=== PATIENT | male | born 1960 | race Caucasian/White ===

== ENCOUNTER 2018-08-21 19:10 | Inpatient (IN) | payer OTHER, SELFPAY ==
[~2018-08-21] VITALS: Ht 175.3 cm; Wt 85.5 kg
[2018-08-21] MEDS ORDERED: CEFTRIAXONE PMX 1GM/50ML 50 ML ONE (19:59)
[2018-08-21] MEDS ORDERED: CEFTRIAXONE PMX 1GM/50ML 50 ML IVPB ONE (20:00)
[2018-08-21] MEDS ORDERED: VANCOMYCIN 1,600 MG in SODIUM CHLORIDE 0.9% 250 ML IV ONE (20:00)
[2018-08-21] MEDS ORDERED: VANCOMYCIN PER PHARMACY IV ONE (20:00)
[2018-08-21] MEDS ORDERED: SODIUM CHLORIDE FLUSH 10ML SYR IVF ONE (20:00)
[2018-08-21] MEDS ORDERED: MULT-6 PO (20:10)
[2018-08-21] MEDS ORDERED: METO-95 PO (20:10)
[2018-08-21] MEDS ORDERED: DIGO125T PO (20:10)
[2018-08-21] MEDS ORDERED: RIVA20TA PO (20:10)
--- NOTE | 2018-08-21 20:22 | NUR ---
ANTIBIOTICS STARTED AFTER BLOOD CULTURES X 2 WERE DRAWN.
[2018-08-21 20:27] LABS: HCT (SEDRATE) 26.4 % (39.2-51.8)
[2018-08-21 20:34] LABS: ALANINE AMINOTRANSFERASE 34 U/L (12-78); ALBUMIN 3.3 g/dL (3.4-5.0); ANION GAP 10 mmol/L (5-15); CALCIUM 8.3 mg/dL (8.5-10.1); CHLORIDE 107 mmol/L (98-107); CREATININE 0.99 mg/dL (0.7-1.3)
[2018-08-21] MEDS ORDERED: OMEP-110 PO (20:34)
[2018-08-21] MEDS ORDERED: HYDR25TA11 PO (20:34)
[2018-08-21 20:38] LABS: MEAN CORPUSCULAR HEMOGLOBIN 20.2 pg (27.5-34.5); MEAN CORPUSCULAR HGB CONC 30.9 g/dL (33.2-36.2); MEAN CORPUSCULAR VOLUME 65.6 fL (81-97); MEAN PLATELET VOLUME 7.1 fL (7.4-10.4); PLATELET COUNT 268 x10^3/uL (130-400); RED CELL DISTRIBUTION WIDTH 22.8 % (9.4-14.8)
[2018-08-21 20:40] LABS: ALKALINE PHOSPHATASE 91 U/L (45-117); BILIRUBIN,TOTAL 0.5 mg/dL (0.2-1.0); TOTAL PROTEIN 7.1 g/dL (6.4-8.2)
[2018-08-21 20:52] LABS: ANISOCYTOSIS 2+; BASOPHILS # (AUTO) 0.02 x10^3/uL (0-0.1); BASOPHILS % (AUTO) 0 % (0-1); EOSINOPHILS # (AUTO) 0.21 x10^3/uL (0-0.4); EOSINOPHILS % (AUTO) 2 % (1-7); LYMPHOCYTES # (AUTO) 1.49 x10^3/uL (1-3.4); LYMPHOCYTES % (AUTO) 14 % (22-44); MD MORPH REVIEW ONLY; MICROCYTOSIS 2+; MONOCYTES # (AUTO) 1.24 x10^3/uL (0.2-0.8); MONOCYTES % (AUTO) 12 % (2-9); NEUTROPHILS # (AUTO) 7.46 x10^3/uL (1.8-6.8); NEUTROPHILS % (AUTO) 72 % (42-75)
[2018-08-21 20:53] LABS: HYPOCHROMIA 2+; OVALOCYTES 1+; POLYCHROMASIA 1+
[2018-08-21 20:55] LABS: <PLATELET ESTIMATE> ADEQUATE; LARGE PLATELETS 1+; SMALL PLATELETS 1+
[2018-08-21] MEDS ORDERED: NAPR220C2 PO (20:59)
[2018-08-21] MEDS ORDERED: SODIUM CHLORIDE FLUSH 10ML SYR IVF PRN (21:00)
[2018-08-21] MEDS ORDERED: VANCOMYCIN 1,600 MG in SODIUM CHLORIDE 0.9% 250 ML IV SCH (21:00)
--- NOTE | 2018-08-21 21:16 | NUR ---
FABIAN AT BEDSIDE FRO ADMIT. WOUND DRESSED WITH DRY DRESSING OF GAUZE AND KERLIX PER PAC.
[2018-08-21] MEDS ORDERED: DOCUSATE 100 MG CAPSULE PO PRN (21:30)
[2018-08-21] MEDS ORDERED: hydrALAzine 20 MG/ML, 1ML IVPush PRN (21:30)
[2018-08-21] MEDS ORDERED: LIDODERM 5% PATCH TD PRN (21:30)
[2018-08-21] MEDS ORDERED: VANCOMYCIN PER PHARMACY MC PRN (21:30)
[2018-08-21] MEDS ORDERED: ONDANSETRON ODT 4 MG PO PRN (21:30)
[2018-08-21 22:02] VITALS: BP 132/85
[2018-08-21] MEDS ORDERED: PHARMACOKINETIC CONSULTATION MC ONE (22:30)
[2018-08-21] MEDS ORDERED: PHARMACOKINETIC MONITORING MC PRN (22:30)
[2018-08-21] MEDS: OMEPRAZOLE 20 MG CAPSULE.DR PO SCH (22:55)
[2018-08-21] MEDS: GABAPENTIN 300 MG CAPSULE PO PRN (22:55)
[2018-08-22 01:33] VITALS: BP 128/84
[2018-08-22] MEDS: ACETAMINOPHEN 325 MG TABLET PO PRN ×3 (02:03→21:04)
[2018-08-22 02:15] VITALS: BP 115/71
[2018-08-22] MEDS: MORPHINE SULFATE 4 MG/ML, 1ML IVPush PRN ×6 (02:50→21:36)
[2018-08-22 03:08] LABS: TROPONIN I < 0.015 ng/mL (0.000-0.045)
[2018-08-22 05:09] LABS: MEAN CORPUSCULAR HEMOGLOBIN 20.3 pg (27.5-34.5); MEAN CORPUSCULAR HGB CONC 30.9 g/dL (33.2-36.2); MEAN CORPUSCULAR VOLUME 65.5 fL (81-97); MEAN PLATELET VOLUME 7.1 fL (7.4-10.4); PLATELET COUNT 239 x10^3/uL (130-400); RED BLOOD COUNT 4.01 x10^6/uL (4.38-5.82); RED CELL DISTRIBUTION WIDTH 23.3 % (9.4-14.8)
[2018-08-22 05:21] LABS: CREATININE 0.85 mg/dL (0.7-1.3)
[2018-08-22 05:22] LABS: TROPONIN I < 0.015 ng/mL (0.000-0.045)
[2018-08-22 06:09] LABS: BASOPHILS # (AUTO) 0.08 x10^3/uL (0-0.1); BASOPHILS % (AUTO) 1 % (0-1); EOSINOPHILS # (AUTO) 0.22 x10^3/uL (0-0.4); EOSINOPHILS % (AUTO) 2 % (1-7); LYMPHOCYTES # (AUTO) 1.19 x10^3/uL (1-3.4); LYMPHOCYTES % (AUTO) 11 % (22-44); MD SCAN; MONOCYTES # (AUTO) 1.26 x10^3/uL (0.2-0.8); MONOCYTES % (AUTO) 12 % (2-9); NEUTROPHILS # (AUTO) 7.82 x10^3/uL (1.8-6.8); NEUTROPHILS % (AUTO) 74 % (42-75)
[2018-08-22 08:04] VITALS: BP 131/83
[2018-08-22] MEDS: CEFTRIAXONE PMX 1GM/50ML 50 ML IV SCH ×2 (08:16→21:25)
[2018-08-22] MEDS: hydrOXyzine 10 MG/5 ML ORAL SOL PO SCH (09:00)
[2018-08-22] MEDS: OMEPRAZOLE 20 MG CAPSULE.DR PO SCH ×2 (10:13→21:04)
[2018-08-22] MEDS: MULTIVITAMIN 1 TABLET PO SCH (10:14)
[2018-08-22] MEDS: DIGOXIN 0.125 MG TABLET PO SCH (10:14)
[2018-08-22] MEDS: METOPROLOL SUCCINATE 100 MG TAB.ER.24H PO SCH (10:14)
[2018-08-22] MEDS: RIVAROXABAN 20 MG TABLET PO SCH (10:14)
[2018-08-22] MEDS: VANCOMYCIN 1,600 MG in SODIUM CHLORIDE 0.9% 250 ML IV SCH ×2 (10:49→13:00)
[2018-08-22] MEDS ORDERED: HYDROmorphone 2 MG/ML, 1ML IV ONE (12:00)
[2018-08-22] MEDS ORDERED: HYDROmorphone 2 MG/ML, 1ML ONE (12:01)
[2018-08-22] MEDS ORDERED: GADOBUTROL 7.5 MMOL/7.5 ML PFS ONE (12:44)
[2018-08-22 13:41] VITALS: BP 123/79
[2018-08-22] MEDS: GABAPENTIN 300 MG CAPSULE PO PRN (14:05)
[2018-08-22 20:00] VITALS: BP 122/79
[2018-08-23] MEDS: VANCOMYCIN 1,600 MG in SODIUM CHLORIDE 0.9% 250 ML IV SCH ×2 (01:20→13:05)
[2018-08-23] MEDS: MORPHINE SULFATE 4 MG/ML, 1ML IVPush PRN ×5 (01:20→22:08)
[2018-08-23 02:00] VITALS: BP 129/87
[2018-08-23 05:54] LABS: INTERNATIONAL NORMALIZED RATIO 1.41 (0.93-1.1); PROTHROMBIN TIME 14.7 Seconds (9.6-11.5)
[2018-08-23 05:59] LABS: ANION GAP 6 mmol/L (5-15); CALCIUM 7.9 mg/dL (8.5-10.1); CHLORIDE 107 mmol/L (98-107); CREATININE 0.77 mg/dL (0.7-1.3)
[2018-08-23 06:15] LABS: MEAN CORPUSCULAR HEMOGLOBIN 19.6 pg (27.5-34.5); MEAN PLATELET VOLUME 7.6 fL (7.4-10.4); PLATELET COUNT 269 x10^3/uL (130-400); RED BLOOD COUNT 3.91 x10^6/uL (4.38-5.82); RED CELL DISTRIBUTION WIDTH 23.4 % (9.4-14.8)
[2018-08-23 06:19] LABS: MEAN CORPUSCULAR HGB CONC 29.6 g/dL (33.2-36.2)
[2018-08-23 06:50] LABS: BASOPHILS % (AUTO) 0 % (0-1); EOSINOPHILS # (AUTO) 0.05 x10^3/uL (0-0.4); EOSINOPHILS % (AUTO) 1 % (1-7); LYMPHOCYTES # (AUTO) 1.16 x10^3/uL (1-3.4); LYMPHOCYTES % (AUTO) 13 % (22-44); MD SCAN; MONOCYTES # (AUTO) 0.82 x10^3/uL (0.2-0.8); MONOCYTES % (AUTO) 9 % (2-9); NEUTROPHILS % (AUTO) 77 % (42-75)
[2018-08-23 07:40] VITALS: BP 134/84
[2018-08-23] MEDS: CEFTRIAXONE PMX 1GM/50ML 50 ML IV SCH ×2 (07:59→22:08)
[2018-08-23] MEDS: MULTIVITAMIN 1 TABLET PO SCH (07:59)
[2018-08-23] MEDS: DIGOXIN 0.125 MG TABLET PO SCH (07:59)
[2018-08-23] MEDS: RIVAROXABAN 20 MG TABLET PO SCH (07:59)
[2018-08-23] MEDS: OMEPRAZOLE 20 MG CAPSULE.DR PO SCH ×2 (07:59→21:00)
[2018-08-23] MEDS: hydrOXyzine 10 MG/5 ML ORAL SOL PO SCH (08:00)
[2018-08-23] MEDS: METOPROLOL SUCCINATE 100 MG TAB.ER.24H PO SCH (08:00)
[2018-08-23 12:28] VITALS: BP 138/94
[2018-08-23] MEDS ORDERED: MIDAZOLAM 1 MG/ML, 2ML ONE (18:20)
[2018-08-23] MEDS ORDERED: FENTANYL PF 100 MCG/2ML ONE ×2 (18:20→19:30)
[2018-08-23] MEDS ORDERED: PROMETHAZINE 12.5 MG SUPP PR PRN (18:30)
[2018-08-23] MEDS ORDERED: MORPHINE SULFATE 4 MG/ML, 1ML IVPush PRN (18:30)
[2018-08-23] MEDS ORDERED: LABETALOL 5MG/ML, 20ML IV PRN (18:30)
[2018-08-23] MEDS ORDERED: PROMETHAZINE 25 MG/ML, 1ML IM PRN ×2 (18:30)
[2018-08-23] MEDS ORDERED: PROMETHAZINE 25 MG/ML, 1ML IV PRN (18:30)
[2018-08-23] MEDS ORDERED: PROMETHAZINE 25 MG SUPP PR PRN (18:30)
[2018-08-23] MEDS ORDERED: HYDROmorphone 2 MG/ML, 1ML IVPush PRN (18:30)
[2018-08-23] MEDS ORDERED: ONDANSETRON 2MG/ML, 2ML IV PRN (18:30)
[2018-08-23] MEDS ORDERED: ONDANSETRON ODT 8 MG PO PRN (18:30)
[2018-08-23] MEDS ORDERED: OXYcodone 5 MG/5 ML ORAL.SOL UDC PO PRN (18:30)
[2018-08-23] MEDS ORDERED: MEPERIDINE/PF 25MG/0.5ML IVPush PRN (18:30)
[2018-08-23] MEDS ORDERED: hydrALAzine 20 MG/ML, 1ML IV PRN (18:30)
[2018-08-23] MEDS ORDERED: CEFAZOLIN 1,000 MG ONE (18:36)
[2018-08-23] MEDS ORDERED: PROPOFOL 10 MG/ML, 20ML ONE (18:36)
[2018-08-23] MEDS ORDERED: OXYcodone 5 MG/5 ML ORAL.SOL UDC ONE (19:30)
[2018-08-23] MEDS: FENTANYL PF 100 MCG/2ML IV PRN ×2 (19:33→19:51)
[2018-08-23] MEDS ORDERED: HYDROmorphone 2 MG/ML, 1ML ONE (19:39)
[2018-08-23] MEDS ORDERED: hydrALAzine 20 MG/ML, 1ML ONE (20:07)
[2018-08-23] MEDS: ACETAMINOPHEN 325 MG TABLET PO PRN (22:14)
[2018-08-24] MEDS: VANCOMYCIN 1,600 MG in SODIUM CHLORIDE 0.9% 250 ML IV SCH ×2 (01:14→13:00)
[2018-08-24] MEDS: MORPHINE SULFATE 4 MG/ML, 1ML IVPush PRN ×6 (01:15→23:58)
[2018-08-24 02:00] VITALS: BP 149/88
[2018-08-24 05:55] LABS: MEAN CORPUSCULAR HEMOGLOBIN 20.4 pg (27.5-34.5); MEAN CORPUSCULAR VOLUME 65.8 fL (81-97); MEAN PLATELET VOLUME 7.4 fL (7.4-10.4); PLATELET COUNT 304 x10^3/uL (130-400); RED BLOOD COUNT 3.93 x10^6/uL (4.38-5.82); RED CELL DISTRIBUTION WIDTH 23.1 % (9.4-14.8)
[2018-08-24 06:12] LABS: ANION GAP 6 mmol/L (5-15); CALCIUM 8.4 mg/dL (8.5-10.1); CHLORIDE 106 mmol/L (98-107)
[2018-08-24 06:15] LABS: CREATININE 0.78 mg/dL (0.7-1.3)
[2018-08-24] MEDS: RIVAROXABAN 20 MG TABLET PO SCH (06:22)
[2018-08-24 06:25] LABS: MD MORPH REVIEW ONLY
[2018-08-24 06:26] LABS: BASOPHILS # (AUTO) 0.03 x10^3/uL (0-0.1); BASOPHILS % (AUTO) 0 % (0-1); EOSINOPHILS # (AUTO) 0.06 x10^3/uL (0-0.4); EOSINOPHILS % (AUTO) 1 % (1-7); LYMPHOCYTES # (AUTO) 1.15 x10^3/uL (1-3.4); LYMPHOCYTES % (AUTO) 13 % (22-44); MONOCYTES # (AUTO) 0.87 x10^3/uL (0.2-0.8); MONOCYTES % (AUTO) 10 % (2-9); NEUTROPHILS # (AUTO) 6.49 x10^3/uL (1.8-6.8); NEUTROPHILS % (AUTO) 76 % (42-75)
[2018-08-24 06:27] LABS: ANISOCYTOSIS 2+; HYPOCHROMIA 2+; MICROCYTOSIS 2+
[2018-08-24 06:28] LABS: <PLATELET ESTIMATE> ADEQUATE; <PLT MORPHOLOGY> NORMAL PLT MORPH; OVALOCYTES 1+
[2018-08-24] MEDS: OMEPRAZOLE 20 MG CAPSULE.DR PO SCH ×2 (07:09→21:36)
[2018-08-24] MEDS: hydrOXyzine 10 MG/5 ML ORAL SOL PO SCH (07:10)
[2018-08-24] MEDS: DIGOXIN 0.125 MG TABLET PO SCH (07:10)
[2018-08-24] MEDS: ACETAMINOPHEN 325 MG TABLET PO PRN (07:10)
[2018-08-24] MEDS: MULTIVITAMIN 1 TABLET PO SCH (07:10)
[2018-08-24] MEDS: METOPROLOL SUCCINATE 100 MG TAB.ER.24H PO SCH (07:10)
[2018-08-24 07:44] VITALS: BP 136/79
[2018-08-24] MEDS: GABAPENTIN 300 MG CAPSULE PO PRN ×2 (08:39→16:01)
[2018-08-24] MEDS: CEFTRIAXONE PMX 1GM/50ML 50 ML IV SCH ×2 (08:41→21:37)
[2018-08-24] MEDS ORDERED: LIDOCAINE-MPF 1%, 5ML ONE (09:16)
[2018-08-24 13:19] VITALS: BP 120/73
[2018-08-24 20:00] VITALS: BP 143/83
[2018-08-24] MEDS ORDERED: VANCOMYCIN 1,600 MG in SODIUM CHLORIDE 0.9% 250 ML IV SCH (20:00)
[2018-08-25 00:37] VITALS: BP 145/81
[2018-08-25] MEDS: ACETAMINOPHEN 325 MG TABLET PO PRN ×2 (02:29→09:21)
[2018-08-25] MEDS: MORPHINE SULFATE 4 MG/ML, 1ML IVPush PRN ×5 (03:01→23:12)
[2018-08-25] MEDS: RIVAROXABAN 20 MG TABLET PO SCH (06:02)
[2018-08-25 07:35] VITALS: BP 156/90
[2018-08-25 07:44] LABS: ALBUMIN 2.4 g/dL (3.4-5.0); ANION GAP 7 mmol/L (5-15); CALCIUM 8.1 mg/dL (8.5-10.1); CHLORIDE 106 mmol/L (98-107); CREATININE 0.86 mg/dL (0.7-1.3)
[2018-08-25 08:09] LABS: MEAN CORPUSCULAR HEMOGLOBIN 19.5 pg (27.5-34.5); MEAN PLATELET VOLUME 7.5 fL (7.4-10.4); PLATELET COUNT 347 x10^3/uL (130-400); RED CELL DISTRIBUTION WIDTH 22.8 % (9.4-14.8)
[2018-08-25 08:18] LABS: MEAN CORPUSCULAR HGB CONC 29.9 g/dL (33.2-36.2)
[2018-08-25 08:19] LABS: MD YES
[2018-08-25 08:21] LABS: BASOS#(MANUAL) 0.13 x10^3/uL (0-0.1); BASOS% (MANUAL) 2 % (0-1); EOS#(MANUAL) 0.26 x10^3/uL (0.0-0.4); EOS% (MANUAL) 4 % (1-7); LYMPH#(MANUAL) 1.52 x10^3/uL (1-3.4); LYMPHS% (MANUAL) 23 % (22-44); MONOS% (MANUAL) 6 % (2-9); SEG#(MANUAL) 4.29 x10^3/uL (1.8-6.8); SEGS% (MANUAL) 65 % (42-75)
[2018-08-25 08:25] LABS: ANISOCYTOSIS 2+; MICROCYTOSIS 2+; POLYCHROMASIA 1+
[2018-08-25 08:26] LABS: HYPOCHROMIA 2+
[2018-08-25 08:28] LABS: TARGET CELLS 1+
[2018-08-25 08:30] LABS: <PLATELET ESTIMATE> ADEQUATE; <PLT MORPHOLOGY> NORMAL PLT MORPH
[2018-08-25] MEDS: GABAPENTIN 300 MG CAPSULE PO PRN ×2 (09:20→16:00)
[2018-08-25] MEDS: CEFTRIAXONE PMX 1GM/50ML 50 ML IV SCH (09:20)
[2018-08-25] MEDS: OMEPRAZOLE 20 MG CAPSULE.DR PO SCH ×2 (09:21→21:17)
[2018-08-25] MEDS: MULTIVITAMIN 1 TABLET PO SCH (09:21)
[2018-08-25] MEDS: METOPROLOL SUCCINATE 100 MG TAB.ER.24H PO SCH (09:21)
[2018-08-25] MEDS: hydrOXyzine 10 MG/5 ML ORAL SOL PO SCH (09:22)
[2018-08-25] MEDS: DIGOXIN 0.125 MG TABLET PO SCH (09:22)
[2018-08-25] MEDS: ERTAPENEM 1 GM in SODIUM CHLORIDE 0.9% 50 ML IV SCH (13:19)
[2018-08-25 14:33] VITALS: BP 136/71
[2018-08-25 19:43] VITALS: BP 148/85
[2018-08-26 02:00] VITALS: BP 152/87
[2018-08-26] MEDS: MORPHINE SULFATE 4 MG/ML, 1ML IVPush PRN ×3 (02:23→11:16)
[2018-08-26] MEDS: GABAPENTIN 300 MG CAPSULE PO PRN (02:23)
[2018-08-26 05:26] LABS: CALCIUM 8.1 mg/dL (8.5-10.1); CHLORIDE 108 mmol/L (98-107)
[2018-08-26 05:30] LABS: MEAN CORPUSCULAR HEMOGLOBIN 20.1 pg (27.5-34.5); MEAN CORPUSCULAR HGB CONC 30.1 g/dL (33.2-36.2); MEAN CORPUSCULAR VOLUME 66.7 fL (81-97); MEAN PLATELET VOLUME 7.4 fL (7.4-10.4); PLATELET COUNT 348 x10^3/uL (130-400); RED BLOOD COUNT 4.03 x10^6/uL (4.38-5.82); RED CELL DISTRIBUTION WIDTH 23.3 % (9.4-14.8)
[2018-08-26 05:32] LABS: ALBUMIN 2.4 g/dL (3.4-5.0); ANION GAP 5 mmol/L (5-15); CREATININE 0.74 mg/dL (0.7-1.3); VANCOMYCIN,RANDOM 4.6 mcg/mL
[2018-08-26 05:46] LABS: BASOPHILS # (AUTO) 0.05 x10^3/uL (0-0.1); BASOPHILS % (AUTO) 1 % (0-1); EOSINOPHILS # (AUTO) 0.28 x10^3/uL (0-0.4); EOSINOPHILS % (AUTO) 5 % (1-7); LYMPHOCYTES # (AUTO) 1.37 x10^3/uL (1-3.4); LYMPHOCYTES % (AUTO) 23 % (22-44); MD SCAN; MONOCYTES # (AUTO) 0.83 x10^3/uL (0.2-0.8); MONOCYTES % (AUTO) 14 % (2-9); NEUTROPHILS # (AUTO) 3.49 x10^3/uL (1.8-6.8); NEUTROPHILS % (AUTO) 58 % (42-75)
[2018-08-26] MEDS: RIVAROXABAN 20 MG TABLET PO SCH (05:59)
[2018-08-26 08:15] VITALS: BP 149/85
[2018-08-26] MEDS: MULTIVITAMIN 1 TABLET PO SCH (09:03)
[2018-08-26] MEDS: METOPROLOL SUCCINATE 100 MG TAB.ER.24H PO SCH (09:03)
[2018-08-26] MEDS: OMEPRAZOLE 20 MG CAPSULE.DR PO SCH (09:04)
[2018-08-26] MEDS: hydrOXyzine 10 MG/5 ML ORAL SOL PO SCH (09:04)
[2018-08-26] MEDS: DIGOXIN 0.125 MG TABLET PO SCH (09:04)
[2018-08-26] MEDS ORDERED: ERTA1VIA4 IV (11:38)
[2018-08-26] MEDS ORDERED: ACET325T14 PO (11:38)
[2018-08-26] MEDS: ERTAPENEM 1 GM in SODIUM CHLORIDE 0.9% 50 ML IV SCH (11:45)
[2018-08-26] MEDS ORDERED: GABA300C10 PO (14:54)
== END 2018-08-26 15:18 | disposition home or self-care (01) | DRG 513 ==
LOC: ED 20:06 → EDIP 20:48 → 3NE 22:10 → DCLOUNGE 08-26 15:07
PROVIDERS: ADMIT Hospitalist; ATTEND Hospitalist
PROC: 0X6W0Z3 Detachment at Left Little Finger, Low, Open Approach (ICD-10-PCS; 2018-08-23)
PROC: 0KBD0ZZ Excision of Left Hand Muscle, Open Approach (ICD-10-PCS; principal; 2018-08-23 17:15)
PROC: 02HV33Z Insertion of Infusion Device into Superior Vena Cava, Percutaneous Approach (ICD-10-PCS; 2018-08-24)
PROC: B5181ZA Fluoroscopy of Superior Vena Cava using Low Osmolar Contrast, Guidance (ICD-10-PCS; 2018-08-24)
PROC: B548ZZA Ultrasonography of Superior Vena Cava, Guidance (ICD-10-PCS; 2018-08-24)
DX: M86.8X4 Other osteomyelitis, hand (principal); L02.512 Cutaneous abscess of left hand; L03.114 Cellulitis of left upper limb; D68.59 Other primary thrombophilia; K22.10 Ulcer of esophagus without bleeding; L03.113 Cellulitis of right upper limb; L02.414 Cutaneous abscess of left upper limb; L03.012 Cellulitis of left finger; D50.9 Iron deficiency anemia, unspecified; I10 Essential (primary) hypertension; I48.2 Chronic atrial fibrillation; M19.041 Primary osteoarthritis, right hand; M19.042 Primary osteoarthritis, left hand; M65.842 Other synovitis and tenosynovitis, left hand; Z87.11 Personal history of peptic ulcer disease; Z87.19 Personal history of other diseases of the digestive system; Z83.3 Family history of diabetes mellitus; Z79.2 Long term (current) use of antibiotics; Z79.01 Long term (current) use of anticoagulants; Z91.018 Allergy to other foods
CPT/HCPCS: 36415; 36573; 80048; 80053; 80202; 82040; 82565; 82962; 84484; 84520; 85025; 85610; 85651; 86140; 87040; 87070; 87075; 87077; 87147; 87186; 87205; 93005; 96365; 99285; A9585; G0378; J0690; J0696; J1170; J1335; J2250; J2704; J3010; J3370; C1751; J0360; J7050; Q0177